=== PATIENT | female | born 1960 | race Caucasian/White ===

== ENCOUNTER → 2022-06-10 | Outpatient (CLI) | payer OTHER, SELFPAY ==
--- NOTE | 2022-06-10 08:00 | CT_ITS ---
STUDY: LOW DOSE CT LUNG CANCER SCREENING REASON FOR EXAM: Female, 61 years old. The patient smoked 1 pack per day for 40 years. History of right breast cancer with mastectomy. Breast implant RADIATION DOSAGE (If Supplied By Facility): CTDIvol = ( 3.02 ) mGy, DLP = ( 99.30 ) mGycm TECHNIQUE: No contrast was administered. Low dose technique was utilized (average mAS-38 and kVp 120). 1.25 mm axial source images with a slice interval of 1.25-mm were reconstructed in lung windows. 2.5 mm axial source images with a slice interval of 2.5-mm were reconstructed in lung windows. 5.0 mm axial source images with a slice interval of 5.0-mm were reconstructed in soft tissue windows. COMPARISON: None. NODULES: No suspicious nodular densities are seen. Emphysema: Hyperinflation. Mild degree of emphysematous changes. Endobronchial lesion: None Aorta: Atherosclerotic plaque formation of the aortic arch. CORONARY ARTERIES: Coronary artery calcification is seen. Heart: Unremarkable Pulmonary artery: Unremarkable Mediastinal nodes: Small benign-appearing mediastinal lymph nodes. Other chest and abdominal findings: Prior right mastectomy and right breast prosthesis. Surgical clips are seen in the right axillary region. CT/Low Dose CT Lung Screening IMPRESSION: Lung-RADS category 2 - Continue annual screening with LDCT in 12 months. IMPORTANT NOTES FOR USE: ACR Lung-RADS Version 1.1 Assessment Categories Release Date: 2018 Category: Coded 0-4 bases on nodule(s) with highest degree of suspicion. Negative screen is defined as categories 1 and 2; a positive screen is defined as categories 3 and 4. Category 3 and 4A nodules that are unchanged on interval CT should be coded as category 2, and individuals returned to screening in 12 months. Category 4X: Category 3 or 4 nodules with additional imaging findings that increase the suspicion of lung cancer, such as spiculation, GGN that doubles in size in 1 year, enlarged lymph notes, etc. Category Modifiers: S (significant finding unrelated to lung cancer) Electronically Signed: Norris Cristina MD at 11:02 EST ,
== END | disposition home or self-care (01) ==
LOC: CT 07:59
PROVIDERS: PCP Family Medicine; Visit Provider Physician Assistant
DX: Z12.2 Encounter for screening for malignant neoplasm of respiratory organs (principal); F17.200 Nicotine dependence, unspecified, uncomplicated
CPT/HCPCS: 71271

== ENCOUNTER → 2023-07-12 | Outpatient (CLI) | payer OTHER, SELFPAY ==
--- NOTE | 2023-07-12 07:53 | CT_ITS ---
INDICATION: Personal history of nicotine dependence EXAMINATION: CT Low Dose CT Chest for Lung Cancer Screening TECHNIQUE: Helically acquired images were obtained of the chest with sagittal and coronal reconstructed images. Individualized dose optimization techniques were used for this CT. COMPARISON: 06/10/2022 CT. FINDINGS: LUNGS, PLEURA AND LARGE AIRWAYS: No consolidation or edema. Stable 4 mm right upper lobe pulmonary nodule image #64 of series #2. Newly visualized 5 mm right upper lobe groundglass pulmonary nodule image #89 of series #2. Newly visualized 6 mm groundglass nodule in the right upper lobe image #107 of series #2. No pleural effusion. No pneumothorax. Centrilobular emphysematous changes of the lungs. THYROID: Unremarkable. HEART AND PERICARDIUM: Coronary artery calcifications are present. No pericardial effusion. MEDIASTINUM AND VAZQUEZ: No mediastinal or hilar adenopathy. Esophagus is unremarkable. No hiatal hernia. VESSELS: No thoracic aortic aneurysm. UPPER ABDOMEN: The visualized upper abdomen is unremarkable. BONES: No acute abnormality. Stable right breast implant rupture with globular densities medial to the breast implant. CT/Low Dose CT Lung Screening IMPRESSION: Stable 4 mm right upper lobe pulmonary nodule and newly visualized 5 mm and 6 mm groundglass right upper lobe pulmonary nodules. Lung-RADS Category 2 (benign appearance or behavior, <1% chance of malignancy) with recommendation to continue annual screening with low-dose CT. Electronically Signed: Wes Laboy DO at 6:04 EST ,
--- OUTSIDE RECORDS SUMMARY | 2023-07-12 08:14 | XMS RPT_ITS | CCD ---
Author Name Unknown Address [address] [place] [address] Organization [facility] Care Team Providers Care [employer] Superintendent Name Role Phone Shan Yoon MD Primary Care Provider MAGDA EAST Referring Unavailable SHAN YOON Primary Care Unavailable SHAN YOON Primary Care Unavailable CHELO WILKERSON Referring Unavailable CHELO WILKERSON Referring Unavailable SHAN YOON Primary Care Unavailable Shan Yoon MD Primary Care Provider SHAN YOON Primary Care Unavailable MAGDA EAST Attending Unavailable SHAN YOON Primary Care Unavailable HEIDI LUCIANO Attending Unavailable CHELO WILKERSON Referring Unavailable HEIDI LUCIANO Attending Unavailable SHAN YOON Primary Care Unavailable SHAN YOON Primary Care Unavailable Medications Completed/Discontinued Medications Medication Drug Class(es) Dates Sig (Normalized) Sig (Original) ferrous sulfate 325 mg oral tablet (17 sources) Start: 04-25-2007 FERROUS SULFATE 325 MG (65 MG ELEMENTAL IRON) TAB Take one(1) tablet twice daily. 0 04/25/2007 Active Problems Active Problems Problem Classification Problem Date Documented Date Episodic/Chronic Other connective tissue disease (3 sources) Pain of left hand; Translations: [Pain in left hand] Episodic Other injuries and conditions due to external causes (2 sources) Osteoarthritis of wrist; Translations: [Other specified injuries of left wrist, hand and finger(s), initial encounter] Episodic Other non-traumatic joint disorders (3 sources) Pain of left wrist; Translations: [Pain in left wrist] Episodic Substance-related disorders (20 sources) Smoker; Translations: [Nicotine dependence, unspecified, uncomplicated] Onset: 10-08-2018 10-08-2018 Chronic Thyroid disorders (20 sources) Acquired hypothyroidism; Translations: [Hypothyroidism, unspecified] Onset: 01-16-2015 01-16-2015 Chronic Past or Other Problems Problem Classification Problem Date Documented Da te Episodic/Chronic Cancer of breast (18 sources) History of malignant neoplasm of breast; Translations: [Personal history of malignant neoplasm of breast] Onset: 09-11-2014 05-03-2021 Episodic Deficiency and other anemia (20 sources) Iron deficiency anemia; Translations: [Iron deficiency anemia, unspecified] Onset: 09-11-2014 09-11-2014 Episodic Deficiency and other anemia (17 sources) Anemia; Translations: [Anemia, unspecified] Onset: 10-08-2018 10-08-2018 Episodic Deficiency and other anemia (1 source) Other iron deficiency anemias; Translations: [Other iron deficiency anemia] Onset: 10-08-2018 Episodic E Codes: Fall (6 sources) Fall; Translations: [Unspecified fall, initial encounter] Onset: 08-15-2022 Episodic Other connective tissue disease (2 sources) Pain in left hand; Translations: [Left hand pain] Onset: 08-15-2022 Episodic Other non-traumatic joint disorders (2 sources) Pain in left wrist; Translations: [Left wrist pain] Onset: 08-15-2022 Episodic Other screening for suspected conditions (not mental disorders or infectious disease) (20 sources) Patient encounter status; Translations: [Encounter for screening mammogram for malignant neoplasm of breast] Onset: 10-08-2018 Episodic Results Test Name Value Interpretation Reference Range Facil ity Vital Signs Date Time Vital Sign Value Performing Clinician Faci lity 06-19-2023 08:02-0500 Body height 159 cm Magda East PA-C Work Phone: [facility] 06-19-2023 08:02-0500 Body temperature 97 [degF] Magda East PA-C Work Phone: [facility] 06-19-2023 08:02-0500 Body weight 78.02 kg Magda East PA-C Work Phone: [facility] 06-19-2023 08:02-0500 Diastolic blood pressure 80 mm[Hg] Magda East PA-C Work Phone: [facility] 06-19-2023 08:02-0500 Heart rate 88 /min Magda East PA-C Work Phone: [facility] 06-19-2023 08:02-0500 Respiratory rate 18 /min Magda East PA-C Work Phone: [facility] 06-19-2023 08:02-0500 Systolic blood pressure 110 mm[Hg] Magda East PA-C Work Phone: [facility] 08-16-2022 10:47-0400 Body height 165.1 cm Heidi Musai PA-C Work Phone: [facility] 08-16-2022 10:47-0400 Body weight 78.47 kg Heidi Bejaranootti PA-C Work Phone: [facility] 08-15-2022 10:38-0400 Body temperature 97.81 [degF] Chelo Wilkerson SYSTEMS QA ANALYST.BALLISTIC EXPERT Work Phone: [facility] 08-15-2022 10:38-0400 Body weight 78.47 kg Chelo Wilkerson SYSTEMS QA ANALYST.BALLISTIC EXPERT Work Phone: [facility] 08-15-2022 10:38-0400 Diastolic blood pressure 78 mm[Hg] Chelo Wilkerson SYSTEMS QA ANALYST.BALLISTIC EXPERT Work Phone: [facility] 08-15-2022 10:38-0400 Heart rate 85 /min Chelo Wilkerson SYSTEMS QA ANALYST.BALLISTIC EXPERT Work Phone: [facility] 08-15-2022 10:38-0400 Respiratory rate 18 /min Chelo Wilkerson SYSTEMS QA ANALYST.BALLISTIC EXPERT Work Phone: [facility] 08-15-2022 10:38-0400 SaO2% (BldA) [Mass fraction] 98 % Chelo Wilkerson SYSTEMS QA ANALYST.BALLISTIC EXPERT Work Phone: [facility] 08-15-2022 10:38-0400 Systolic blood pressure 126 mm[Hg] Chelo Wilkerson SYSTEMS QA ANALYST.BALLISTIC EXPERT Work Phone: [facility] 06-03-2022 13:15-0500 Body weight 79.29 kg Magda East PA-C Work Phone: [facility] 06-03-2022 13:15-0500 Diastolic blood pressure 80 mm[Hg] Magda East PA-C Work Phone: [facility] 06-03-2022 13:15-0500 Heart rate 80 /min Magda East PA-C Work Phone: [facility] 06-03-2022 13:15-0500 Respiratory rate 16 /min Magda East PA-C Work Phone: [facility] 06-03-2022 13:15-0500 SaO2% (BldA) [Mass fraction] 96 % Magda East PA-C Work Phone: [facility] 06-03-2022 13:15-0500 Systolic blood pressure 120 mm[Hg] Magda East PA-C Work Phone: [facility] Encounters Encounter Date Encounter Type Care Provider Facility Start: 06-19-2023 Telephone encounter Basim dyer MD Work Phone: Hematology/Oncology Procedures Date Procedure Procedure Detail Performing Clinician Start: 08-15-2022 Radex hand minimum 3 views Chelo Wilkerson SYSTEMS QA ANALYST.BALLISTIC EXPERT Work Phone: Start: 06-10-2022 Mammography Sweta johnston SYSTEMS QA ANALYST.BALLISTIC EXPERT Work Phone: Start: 05-17-2022 Lipid 1996 panel - S kenia or Plasma Shan Yoon MD Work Phone: Start: 10-16-2018 Mammography Shan erickson MD Work Phone: Start: 08-08-2017 Colonoscopy Shan erickson MD Work Phone: Plan of Treatment Date Care Activity Detail Author Start: 08-09-2027 Urine microalbumin profile [facility] Start: 05-17-2027 Lipid panel Lipid Screening [facility] Start: 05-17-2027 LIPID SCREEN LIPID SCREEN [facility] Start: 10-01-2025 LIPID SCREEN LIPID SCREEN [facility] Start: 05-17-2025 DIABETES SCREEN DIABETES SCREEN [facility] Start: 05-17-2025 Diabetes Screening Diabetes Screenin g [facility] Start: 06-19-2024 Annual PCP Team [employer] Machine Offbearer adeline Disease Visit Annual PCP Team Chronic Disease Visit [facility] Start: 06-19-2024 Covid-19 Vaccine ( season) Covid-19 Vaccine ( season) [facility] Immunizations Immunization Date Immunization Notes Care Provider Fa elliott 03-27-2018 influenza virus vacc ine, unspecified formulation Shan Yoon MD Work Phone: [facility] 08-08-2017 tetanus toxoid, redu christoph diphtheria toxoid, and acellular pertussis vaccine, adsorbed Shan Yoon MD Work Phone: [facility] Payers Date Payer Category Payer Unknown MMO MMO [employer] [id number] 2018-Present [phone] [address] [place] [address] PPO [id number] 2018 Unknown [id number] 2018 Unknown [id number] Social History Date Type Detail Facility Start: 07-01-2019 End: 06-03-2022 Tobacco smoking status PAIS Smokes tobacco daily [facility] History of tobacco use Cigarette Smoker [facility] Start: 04-15-2021 End: 06-19-2023 Alcohol intake Current non-drinker of alcohol (finding) [facility] Start: 07-01-2019 End: 06-03-2022 Tobacco Comment up to 1 ppd at times. [facility] Start: 1960 Sex Assigned At Not on file [facility] Start: 07-01-2019 End: 04-12-2020 Cigarettes smoked current (pack per day) - Reported 0.3 [facility] Work Phone: Start: 07-01-2019 End: 06-03-2022 Tobacco use and exposure Smokeless tobacco non-user [facility] Work Phone: Start: 04-12-2020 End: 09-09-2022 Tobacco use panel [facility] Work Phone: Adult Depression Screening Assessment 0 [facility] Work Phone: Clinical Notes 05-25-2007 to 06-20-2023 Telephone Encounter - Megha Joel LPN - 06/20/2023 2:50 PM ESTTelephone Encounter - Chuy Garza LPN - 06/20/2023 2:30 PM ESTTelephone Encounter - Carmita Wilkerson - 06/19/2023 2:25 PM EST Note Date & Type Note Facility 06-20-2023 Miscellaneous Notes If you read Dr. Beny Martin's note dated 05/25/2007, and Dr. Myers 04/25/2007 notes and it will give us some clue as to past breast history since pt. Really can't remember any of the information. Does this give us enough info to initiate scheduling. Megha Joel LPN Patient reports that she was at [facility] which is no longer there. Patient reports that doctor who saw her went back to [facility] and there for [facility] was closed. Patient states that she had chemotherapy for a year but did not have any radiation. Left message of Magda's message on pt's vm. Chuy Garza LPN Noted. Let her know I will still forward the information to oncology. I know she had concerns, so if she changes her mind, please let me know. Patient calls back and states that she does not want to go through this hassle and states to just forget about it. Patient reports that she was at [facility] which is no longer there. Patient reports that doctor who saw her went back to [place] and there for [facility] was closed. Patient states that she had chemotherapy for a year but did not have any radiation. Jessica Spence, RN Left message for pt to contact office. See questions below. Chuy Garza LPN Please see note from oncologist. See if patient can answer these questions the best she can. Thanks. Magda East PA-C Just need to know a few basic things. When did she have breast cancer? Who was the surgeon? Perhaps we can get records from him or her. At what hospital was a surgery done? Perhaps we could get the pathology report from that hospital. Did she have radiation? If so maybe we can get records from the radiation oncologist. Was she treated with a lumpectomy or mastectomy? Did she receive chemotherapy? Dr. Farris Neris, Did you already reach out to patient to see where she saw Oncology prior or would you like our team to? HX: breast cancer - ICD9: V10.3, ICD10: Z85.3 Patient would like to just discuss her hx with oncology and make sure nothing more is needed. - CONSULT TO HEMATOLOGY/ONCOLOGY Other iron deficiency anemia - ICD9: 280.8, ICD10: D50.8 - CBC + DIFF - COMP METABOLIC PANEL - IRON + TIBC - CONSULT TO HEMATOLOGY/ONCOLOGY We will need previous oncology records to be able to discuss patient's h/o breast cancer. Records must be received prior to scheduling. Neris Miles LPN Patient needs to see hematology/oncology: DX: HX of breast cancer/ Anemia Insurance: MMO [employer] Referred by: PATTI Savage Please review and advise documented in this encounter [facility] 06-19-2023 Miscellaneous Notes Addended by: AILYN COHEN on: 06/19/2023 02:42 PM Modules accepted: Orders documented in this encounter [facility] 06-19-2023 Note HNO ID: [id number] Author: MAGDA EAST PA-C Service: ? Author Type: Physician Auditor Internal Type: Progress Notes Filed: 06/19/2023 10:09 Note Text: Chief Complaint Patient presents with: Yearly Exam HPI Linda Linares is a 62 year old female who presents here today for physical. Patient with hx of anemia, hypothyroid, smoker and past hx of breast cancer. Patient denies concerns today but has been worried about cancer risk. Past medical history, appointments, medications, allergies reviewed. Previous Medical History PAST MEDICAL HISTORY Diagnosis Date Acquired hypothyroidism 01/16/2015 Benign neoplasm of breast 1998 right breast HX: breast cancer 09/11/2014 Right side Iron deficiency anemia 09/11/2014 Postmastectomy lymphedema syndrome Smoker 10/08/2018 Started at the age of 21 up to 1 PPD VENTRAL HERNIA, RECURRENT W/O GANGRENE/OBSTRUCTION 05/25/2007 Previous Surgical History PAST SURGICAL HISTORY Procedure Laterality Date BREAST PROSTHESIS, NOS right breast DELIVERY ONLY , low cervical IMPLANT MESH OPN HERNIA RPR/DEBRIDEMENT CLOSURE 10/06/08 MASTECTOMY 1998 right breast RMVL SHER CTR VAD W/SUBQ PORT/FIBER ANALYST CTR/PRPH INSJ 10/06/08 RPR 1ST INCAL/VNT HERNIA INCARCERATED 10/06/08 Family History FAMILY HISTORY Problem Relation Age of Onset Diabetes Mother Stroke Father TIA Cancer Maternal Grandmother liver cancer Diabetes Maternal Grandmother Diabetes Other niece 5 yo Patient Allergies ALLERGIES No Known Allergies Current Medications Current Outpatient Medications on File Prior to Visit Medication Sig FERROUS SULFATE 325 MG (65 MG ELEMENTAL IRON) TAB Take one(1) tablet twice daily. No current facility-administered medications on file prior to visit. Social History Social History Tobacco Use Smoking status: Every Day Packs/day: 1.00 Years: 20.00 Additional pack years: 0.00 Total pack years: 20.00 Types: Cigarettes Smokeless tobacco: Never Tobacco comments: up to 1 ppd at times. Vaping Use Vaping Use: Never used Substance Use Topics Alcohol use: No Drug use: No Review of Symptoms REVIEW OF SYSTEMS GENERAL: No weight loss, malaise or fevers HEENT: Negative for frequent or significant headaches, No changes in hearing or vision, no nose bleeds or other nasal problems NECK: Negative for lumps, goiter, pain and significant neck swelling RESPIRATORY: Negative for cough, hemoptysis, wheezing, COPD, dyspnea or shortness of breath CARDIOVASCULAR: Negative for chest pain, leg swelling, hypertension, CHF or palpitations GI: No nausea, vomiting, or diarrhea : No history of dysuria, frequency or incontinence MUSCULOSKELETAL: Negative for joint pain or swelling, back pain or muscle pain SKIN: Negative for lesions, rash, and itching PSYCH: Negative for sleep disturbance, mood disorder and recent psychosocial stressors HEMATOLOGY/LYMPHOLOGY: Negative for prolonged bleeding, bruising easily or swollen nodes ENDOCRINE: Negative for cold or heat intolerance, polyuria, polydipsia and goiter NEURO: No history of headaches, syncope, paralysis, seizures or tremors EXAM: BP 110/80 (BP Site: Left Arm, BP Position: Sitting, BP Cuff Size: Large Adult) Pulse 88 Temp 36.1 ?C (97 ?F) Resp 18 Ht 159 cm (5' 2.6 ) Wt 78 kg (172 lb) LMP 01/06/2007 BMI 30.86 kg/m? General Appearance: Well appearing, alert, in no acute distress, well-hydrated, well nourished.. Skin: Skin color, texture, turgor normal, no suspicious rashes or lesions. Head: Normocephalic, no masses, lesions, tenderness or abnormalities. Eyes: Anicteric sclera. Pupils are equally round and reactive to light. Extraocular movements are intact. . Ears: External ears normal, canals clear, TMs pearly patterson. Nose/Sinuses: Nares normal, septum midline, mucosa normal, no drainage or sinus tenderness. Oropharynx: Lips, mucosa, and tongue normal, teeth and gums normal, oropharynx normal. Neck: Supple, no adenopathy; thyroid symmetric, normal size, no bruits. Lungs: Lungs clear to auscultation. No wheezing, rhonchi, rales.. Heart: RRR without murmur, gallop, or rubs. No ectopy. Abdomen: Normal abdominal exam, Abdomen soft, non-tender. Bowel sounds normal. No masses, organomegaly. Extremities: No deformities, edema, skin discoloration, clubbing or cyanosis. Good capillary refill. . Peripheral Pulses: Normal. Neurologic: Gait normal. Reflexes normal and symmetric. Sensation grossly intact.. Health Maintenance List Colorectal Cancer Screening due on 08/08/2018 Pap Testing due on 09/26/2019 HPV Testing due on 09/26/2019 RSV Vaccine(1 - 1-dose 60+ series) Never done Mammogram Screening due on 06/10/2023 Lung Cancer Screening due on 06/10/2023 Influenza Vaccine(1) due on 11/05/2023 Depression Assessment due on 05/07/2024 Shingrix Vaccine(1 of 2) due on 06/19/2024 Covid-19 Vaccine( season) due on 06/19/2024 Pne (more content not included)... [facility] 06-19-2023 History of Presen t illness Narrative Chief Complaint Patient presents with: Yearly Exam HPI Linda Linares is a 62 year old female who presents here today for physical. Patient with hx of anemia, hypothyroid, smoker and past hx of breast cancer. Patient denies concerns today but has been worried about cancer risk. Past medical history, appointments, medications, allergies reviewed. Previous Medical History PAST MEDICAL HISTORY Diagnosis Date Acquired hypothyroidism 01/16/2015 Benign neoplasm of breast 1998 right breast HX: breast cancer 09/11/2014 Right side Iron deficiency anemia 09/11/2014 Postmastectomy lymphedema syndrome Smoker 10/08/2018 Started at the age of 21 up to 1 PPD VENTRAL HERNIA, RECURRENT W/O GANGRENE/OBSTRUCTION 05/25/2007 Previous Surgical History PAST SURGICAL HISTORY Procedure Laterality Date BREAST PROSTHESIS, NOS right breast DELIVERY ONLY , low cervical IMPLANT MESH OPN HERNIA RPR/DEBRIDEMENT CLOSURE 10/06/08 MASTECTOMY 1998 right breast RMVL SHER CTR VAD W/SUBQ PORT/FIBER ANALYST CTR/PRPH INSJ 10/06/08 RPR 1ST INCAL/VNT HERNIA INCARCERATED 10/06/08 Family History FAMILY HISTORY Problem Relation Age of Onset Diabetes Mother Stroke Father TIA Cancer Maternal Grandmother liver cancer Diabetes Maternal Grandmother Diabetes Other niece 5 yo Patient Allergies ALLERGIES No Known Allergies Current Medications Current Outpatient Medications on File Prior to Visit Medication Sig FERROUS SULFATE 325 MG (65 MG ELEMENTAL IRON) TAB Take one(1) tablet twice daily. No current facility-administered medications on file prior to visit. Social History Social History Tobacco Use Smoking status: Every Day Packs/day: 1.00 Years: 20.00 Additional pack years: 0.00 Total pack years: 20.00 Types: Cigarettes Smokeless tobacco: Never Tobacco comments: up to 1 ppd at times. Vaping Use Vaping Use: Never used Substance Use Topics Alcohol use: No Drug use: No Review of Symptoms REVIEW OF SYSTEMS GENERAL: No weight loss, malaise or fevers HEENT: Negative for frequent or significant headaches, No changes in hearing or vision, no nose bleeds or other nasal problems NECK: Negative for lumps, goiter, pain and significant neck swelling RESPIRATORY: Negative for cough, hemoptysis, wheezing, COPD, dyspnea or shortness of breath CARDIOVASCULAR: Negative for chest pain, leg swelling, hypertension, CHF or palpitations GI: No nausea, vomiting, or diarrhea : No history of dysuria, frequency or incontinence MUSCULOSKELETAL: Negative for joint pain or swelling, back pain or muscle pain SKIN: Negative for lesions, rash, and itching PSYCH: Negative for sleep disturbance, mood disorder and recent psychosocial stressors HEMATOLOGY/LYMPHOLOGY: Negative for prolonged bleeding, bruising easily or swollen nodes ENDOCRINE: Negative for cold or heat intolerance, polyuria, polydipsia and goiter NEURO: No history of headaches, syncope, paralysis, seizures or tremors EXAM: BP 110/80 (BP Site: Left Arm, BP Position: Sitting, BP Cuff Size: Large Adult) Pulse 88 Temp 36.1 C (97 F) Resp 18 Ht 159 cm (5' 2.6 ) Wt 78 kg (172 lb) LMP 01/06/2007 BMI 30.86 kg/m General Appearance: Well appearing, alert, in no acute distress, well-hydrated, well nourished.. Skin: Skin color, texture, turgor normal, no suspicious rashes or lesions. Head: Normocephalic, no masses, lesions, tenderness or abnormalities. Eyes: Anicteric sclera. Pupils are equally round and reactive to light. Extraocular movements are intact. . Ears: External ears normal, canals clear, TMs pearly patterson. Nose/Sinuses: Nares normal, septum midline, mucosa normal, no drainage or sinus tenderness. Oropharynx: Lips, mucosa, and tongue normal, teeth and gums normal, oropharynx normal. Neck: Supple, no adenopathy; thyroid symmetric, normal size, no bruits. Lungs: Lungs clear to auscultation. No wheezing, rhonchi, rales.. Heart: RRR without murmur, gallop, or rubs. No ectopy. Abdomen: Normal abdominal exam, Abdomen soft, non-tender. Bowel sounds normal. No masses, organomegaly. Extremities: No deformities, edema, skin discoloration, clubbing or cyanosis. Good capillary refill. . Peripheral Pulses: Normal. Neurologic: Gait normal. Reflexes normal and symmetric. Sensation grossly intact.. Health Maintenance List Colorectal Cancer Screening due on 08/08/2018 Pap Testing due on 09/26/2019 HPV Testing due on 09/26/2019 RSV Vaccine(1 - 1-dose 60+ series) Never done Mammogram Screening due on 06/10/2023 Lung Cancer Screening due on 06/10/2023 Influenza Vaccine(1) due on 11/05/2023 Depression Assessment due on 05/07/2024 Shingrix Vaccine(1 of 2) due on 06/19/2024 Covid-19 Vaccine(3 - 2022-24 season) due on 06/19/2024 Pneumococcal Vaccine(1 of 2 - PCV) due on 06/19/2024 Annual PCP Team Chronic Disease Visit due on 06/19/2024 Diabetes Screening due on 05/17/2025 Lipid Screening due on 05/17/2027 DTaP,Tdap,Td Vaccine(2 - Td or Tdap) due on 08/09/2027 Hepatitis C Screening Completed HIV Screening Discontinued Data reviewed ASSESSMENT/PLAN: 1. Well adult exam - ICD9: V70.0, ICD10: Z00.00 (primary diagnosis) - Counseled on healthy diet and regular exercise - Calcium intake with supplements or by diet of 1000 mg/day for under 50, 9884-5098 mg/day for 50+ - Colorectal cancer screening recommended - agrees to Cologuard - Mammogram ordered - exam recommended once yearly - Lung cancer screening recommended- order sent to [facility] - Smoking cessation encouraged; discussed risks to health and quitting strategies. Patient is contemplative - Follow up for annual exam in one year - patient will consider Pap/pelvic exam with psychopaedic nurse. - COMP METABOLIC PANEL 2. Acquired hypothyroidism - ICD9: 244.9, ICD10: E03.9 - Instructed patient on importance of taking on an empty stomach either first thing in the morning or at bedtime. - LEVOTHYROXINE 200 MCG TABLET - TSH BLD 3. Smoker - ICD9: 305.1, ICD10: F17.200 - Cessation encouraged. - Physiologic and physical aspects of tobacco addiction as well as strategies for quitting were discussed. - Counseling was given focusing on the harmful effects of this addiction especially given the patient's medical condition(s) which will be worsened because of the chemicals in tobacco. - CBC + DIFF - COMP METABOLIC PANEL 4. Other iron deficiency anemia - ICD9: 280.8, ICD10: D50.8 - CBC + DIFF - COMP METABOLIC PANEL - IRON + TIBC - CONSULT TO HEMATOLOGY/ONCOLOGY 5. Screening for colon cancer - ICD9: V76.51, ICD10: Z12.11 - COLOGUARD 6. Encounter for screening for diabetes mellitus - ICD9: V77.1, ICD10: Z13.1 - HGB A1C - COMP METABOLIC PANEL 7. Encounter for lipid screening for cardiovascular disease - ICD9: V77.91, V81.2, ICD10: Z13.220, Z13.6 - LIPID PANEL, NONFASTING 8. HX: breast cancer - ICD9: V10.3, ICD10: Z85.3 Patient would like to just discuss her hx with oncology and make sure nothing more is needed. - CONSULT TO HEMATOLOGY/ONCOLOGY 9. Encounter for screening mammogram for breast cancer - ICD9: V76.12, ICD10: Z12.31 - QUENTIN SCREENING Magda East PA-C documented in this encounter [facility] 06-14-2023 Miscellaneous Notes Spoke with pt and advised of need to reschedule appointment. Pt advises she will call back this afternoon to reschedule her physical appointment as she is currently on a bus. Advised her to ask to speak with a Triage Nurse. Chuy Garza LPN Patients appointment in may was cancelled but did not get rescheduled. Needs to be rescheduled. Only 1 refill sent. Magda East PA-C Per below: Patient has only 1 pill left. ELLIOT 06/03/22 NOV pt to f/u yearly Chuy Garza LPN Patient has been identified by name and date of : Patient phones for refill(s): Requested Prescriptions Pending Prescriptions Disp Refills levothyroxine (SYNTHROID) 200 mcg tablet 90 tablet 4 Sig: Take 1 tablet by mouth once daily. Take on an empty stomach, for thyroid. Date of last office visit in primary care: 06/03/2022 Date of next office visit in primary care: Visit date not found Patient has only 1 pill left. Please advise. Thank you. Ivanna Milnre. documented in this encounter [facility] 09-09-2022 Note HNO ID: [id number] Author: Heidi Luciano PA-C Service: ? Author Type: Physician Auditor Internal Type: Progress Notes Filed: 09/09/2022 2:36 PM Note Text: Heidi Luciano PA-C Established Patient Department of Orthopaedics Orthopaedics [address] [place] [id number] Dept: [phone] September 09, 2022 SUBJECTIVE: CHIEF COMPLAINT: Follow Up of the Left Wrist HPI: Ms. Linda Linares is a 61 year old female. She was last seen in the office on 08/16/2022 for left wrist pain that has been present for 3 days. She is here today for follow up. Today she rates her pain a 4 on a scale of 0 to 10 at rest. She continues to take ibuprofen only as needed. She has discontinued her brace except for any activity that involves repetitive motion or heavy lifting. She states that overall her pain has been improving. She does get some intermittent numbness and tingling in her fourth and fifth digits when her wrist is bothering her more. She denies any recent injury or the onset of new or worsening symptoms. Past Medical History: PAST MEDICAL HISTORY Diagnosis Date Acquired hypothyroidism 01/16/2015 Benign neoplasm of breast 1998 right breast HX: breast cancer 09/11/2014 Right side Iron deficiency anemia 09/11/2014 Postmastectomy lymphedema syndrome Smoker 10/08/2018 Started at the age of 21 up to 1 PPD VENTRAL HERNIA, RECURRENT W/O GANGRENE/OBSTRUCTION 05/25/2007 Past Surgical History: PAST SURGICAL HISTORY Procedure Laterality Date BREAST PROSTHESIS, NOS right breast DELIVERY ONLY , low cervical IMPLANT MESH OPN HERNIA RPR/DEBRIDEMENT CLOSURE 10/06/08 MASTECTOMY 1998 right breast RMVL SHER CTR VAD W/SUBQ PORT/FIBER ANALYST CTR/PRPH INSJ 10/06/08 RPR 1ST INCAL/VNT HERNIA INCARCERATED 10/06/08 Family History: FAMILY HISTORY Problem Relation Age of Onset Diabetes Mother Stroke Father TIA Cancer Maternal Grandmother liver cancer Diabetes Maternal Grandmother Diabetes Other niece 5 yo Social History: Social History Tobacco Use Smoking status: Every Day Packs/day: 1.00 Years: 20.00 Pack years: 20.00 Types: Cigarettes Smokeless tobacco: Never Tobacco comments: up to 1 ppd at times. Vaping Use Vaping Use: Never used Substance Use Topics Alcohol use: No Drug use: No Medications: Current Outpatient Medications Medication Sig levothyroxine (SYNTHROID) 200 mcg tablet Take 1 tablet by mouth once daily. Take on an empty stomach, for thyroid. FERROUS SULFATE 325 MG (65 MG ELEMENTAL IRON) TAB Take one(1) tablet twice daily. No current facility-administered medications for this visit. Allergies: Patient has no known allergies. ROS: General: negative for fatigue, malaise, weight loss/gain Musculoskeletal: see HPI Psych: no depression, anxiety OBJECTIVE: Ms. Linda Linares is a pleasant 61 year old in no apparent distress. Gen:LMP 01/06/2007 nl development, non obese, no deformities ENT: Normocephalic, normal hearing, moist mucosa CV: Pulses:Radial= 2+ and symmetric, capillary refill < 2 secs, no peripheral edema/varicosities Skin: no rash, bruising or lesions. Good turgor. Psych: cooperative and appropriate, alert and oriented x 3, good mood and affect. Musculoskeletal: Right Hand Exam Right hand exam is normal. Left Hand Exam Tenderness Left hand tenderness location: TFCC. Range of Motion Wrist Extension: 20 Flexion: 20 Muscle Strength Wrist extension: 4/5 Wrist flexion: 4/5 Silk Washing Machine Operator: 4/5 Tests Rob's test: negative Other Erythema: absent Scars: absent IMAGING: Not indicated ASSESSMENT: S69.82XD Injury of triangular fibrocartilage complex (TFCC) of left wrist, subsequent encounter (primary encounter diagnosis) PLAN: Reviewed images taken previously. Patient given HEP to participate in daily to increase strength and ROM. She will discontinue brace as tolerated and continue to take ibuprofen as needed. Discussed with patient that she will continue to see improvement for the next 1-2 months. Patient agreeable with plan and will follow up as needed if she fails to continue to improve. FOLLOW UP INSTRUCTIONS: As needed Heidi Luciano PA-C [facility] 09-09-2022 History of Presen t illness Narrative Heidi Luciano PA-C Established Patient Department of Orthopaedics Orthopaedics [address] [place] [id number] Dept: [phone] September 09, 2022 SUBJECTIVE: CHIEF COMPLAINT: Follow Up of the Left Wrist HPI: Ms. Linda Linares is a 61 year old female. She was last seen in the office on 08/16/2022 for left wrist pain that has been present for 3 days. She is here today for follow up. Today she rates her pain a 4 on a scale of 0 to 10 at rest. She continues to take ibuprofen only as needed. She has discontinued her brace except for any activity that involves repetitive motion or heavy lifting. She states that overall her pain has been improving. She does get some intermittent numbness and tingling in her fourth and fifth digits when her wrist is bothering her more. She denies any recent injury or the onset of new or worsening symptoms. Past Medical History: PAST MEDICAL HISTORY Diagnosis Date Acquired hypothyroidism 01/16/2015 Benign neoplasm of breast 1998 right breast HX: breast cancer 09/11/2014 Right side Iron deficiency anemia 09/11/2014 Postmastectomy lymphedema syndrome Smoker 10/08/2018 Started at the age of 21 up to 1 PPD VENTRAL HERNIA, RECURRENT W/O GANGRENE/OBSTRUCTION 05/25/2007 Past Surgical History: PAST SURGICAL HISTORY Procedure Laterality Date BREAST PROSTHESIS, NOS right breast DELIVERY ONLY , low cervical IMPLANT MESH OPN HERNIA RPR/DEBRIDEMENT CLOSURE 10/06/08 MASTECTOMY 1998 right breast RMVL SHER CTR VAD W/SUBQ PORT/FIBER ANALYST CTR/PRPH INSJ 10/06/08 RPR 1ST INCAL/VNT HERNIA INCARCERATED 10/06/08 Family History: FAMILY HISTORY Problem Relation Age of Onset Diabetes Mother Stroke Father TIA Cancer Maternal Grandmother liver cancer Diabetes Maternal Grandmother Diabetes Other niece 5 yo Social History: Social History Tobacco Use Smoking status: Every Day Packs/day: 1.00 Years: 20.00 Pack years: 20.00 Types: Cigarettes Smokeless tobacco: Never Tobacco comments: up to 1 ppd at times. Vaping Use Vaping Use: Never used Substance Use Topics Alcohol use: No Drug use: No Medications: Current Outpatient Medications Medication Sig levothyroxine (SYNTHROID) 200 mcg tablet Take 1 tablet by mouth once daily. Take on an empty stomach, for thyroid. FERROUS SULFATE 325 MG (65 MG ELEMENTAL IRON) TAB Take one(1) tablet twice daily. No current facility-administered medications for this visit. Allergies: Patient has no known allergies. ROS: General: negative for fatigue, malaise, weight loss/gain Musculoskeletal: see HPI Psych: no depression, anxiety OBJECTIVE: Ms. Linda Linares is a pleasant 61 year old in no apparent distress. Gen:LMP 01/06/2007 nl development, non obese, no deformities ENT: Normocephalic, normal hearing, moist mucosa CV: Pulses:Radial= 2+ and symmetric, capillary refill < 2 secs, no peripheral edema/varicosities Skin: no rash, bruising or lesions. Good turgor. Psych: cooperative and appropriate, alert and oriented x 3, good mood and affect. Musculoskeletal: Right Hand Exam Right hand exam is normal. Left Hand Exam Tenderness Left hand tenderness location: TFCC. Range of Motion Wrist Extension: 20 Flexion: 20 Muscle Strength Wrist extension: 4/5 Wrist flexion: 4/5 Silk Washing Machine Operator: 4/5 Tests Rob's test: negative Other Erythema: absent Scars: absent IMAGING: Not indicated ASSESSMENT: S69.82XD Injury of triangular fibrocartilage complex (TFCC) of left wrist, subsequent encounter (primary encounter diagnosis) PLAN: Reviewed images taken previously. Patient given HEP to participate in daily to increase strength and ROM. She will discontinue brace as tolerated and continue to take ibuprofen as needed. Discussed with patient that she will continue to see improvement for the next 1-2 months. Patient agreeable with plan and will follow up as needed if she fails to continue to improve. FOLLOW UP INSTRUCTIONS: As needed Heidi Luciano PA-C documented in this encounter [facility] 08-16-2022 Note HNO ID: [id number] Author: Heidi Luciano PA-C Service: ? Author Type: Physician Auditor Internal Type: Progress Notes Filed: 08/16/2022 1:11 PM Note Text: Heidi Luciano PA-C Department of Orthopaedics Orthopaedics [address] [place] [address] Dept: [phone] Dept August 16, 2022 SUBJECTIVE: CHIEF COMPLAINT: New, Pain, and Swelling of the Left Hand HPI: Ms. Linda Linares is a 61 year old [id number] female. She presents today with left wrist pain that been present since she fell while rollerblading 2 days ago. She was seen at an urgent care and given an order for x-rays which she had obtained at [facility] yesterday. She is here today wearing a brace. Today she rates her pain a 0 on a scale of 0-10 at rest. Her pain increases to a 5 out of 10 with activity. She notes that overall her pain has improved since her initial injury. She has been taking ibuprofen as needed at night when she is working third shift. She has been icing and has remained in her brace. She denies any new numbness/tingling or previous hand surgeries. Past Medical History: PAST MEDICAL HISTORY Diagnosis Date Acquired hypothyroidism 01/16/2015 Benign neoplasm of breast 1998 right breast HX: breast cancer 09/11/2014 Right side Iron deficiency anemia 09/11/2014 Postmastectomy lymphedema syndrome Smoker 10/08/2018 Started at the age of 21 up to 1 PPD VENTRAL HERNIA, RECURRENT W/O GANGRENE/OBSTRUCTION 05/25/2007 Past Surgical History: PAST SURGICAL HISTORY Procedure Laterality Date BREAST PROSTHESIS, NOS right breast DELIVERY ONLY , low cervical IMPLANT MESH OPN HERNIA RPR/DEBRIDEMENT CLOSURE 10/06/08 MASTECTOMY 1998 right breast RMVL SHER CTR VAD W/SUBQ PORT/FIBER ANALYST CTR/PRPH INSJ 10/06/08 RPR 1ST INCAL/VNT HERNIA INCARCERATED 10/06/08 Family History: FAMILY HISTORY Problem Relation Age of Onset Diabetes Mother Stroke Father TIA Cancer Maternal Grandmother liver cancer Diabetes Maternal Grandmother Diabetes Other niece 5 yo Social History: Social History Tobacco Use Smoking status: Every Day Packs/day: 1.00 Years: 20.00 Pack years: 20.00 Types: Cigarettes Smokeless tobacco: Never Tobacco comments: up to 1 ppd at times. Vaping Use Vaping Use: Never used Substance Use Topics Alcohol use: No Drug use: No Medications: Current Outpatient Medications Medication Sig levothyroxine (SYNTHROID) 200 mcg tablet Take 1 tablet by mouth once daily. Take on an empty stomach, for thyroid. FERROUS SULFATE 325 MG (65 MG ELEMENTAL IRON) TAB Take one(1) tablet twice daily. No current facility-administered medications for this visit. Allergies: Patient has no known allergies. ROS: General: negative for fatigue, malaise, weight loss/gain Musculoskeletal: see HPI Psych: no depression, anxiety OBJECTIVE: Ms. Linda Linares is a pleasant 61 year old in no apparent distress. Gen:Ht 5' 5 (1.65m) Wt 173 lb (78.5kg) LMP 01/06/2007 BMI 28.79 kg/(m2). nl development, non obese, no deformities ENT: Normocephalic, normal hearing, moist mucosa CV: Pulses:Radial= 2+ and symmetric, capillary refill < 2 secs, no peripheral edema/varicosities Skin: no rash, bruising or lesions. Good turgor. Psych: cooperative and appropriate, alert and oriented x 3, good mood and affect. Musculoskeletal: Right Hand Exam Right hand exam is normal. Left Hand Exam Tenderness Left hand tenderness location: TFCC amd scapholunate, no snuffbox tenderness. Range of Motion Wrist Extension: 20 Flexion: 40 Pronation: 80 Supination: 80 Muscle Strength Wrist extension: 4/5 Wrist flexion: 4/5 Silk Washing Machine Operator: 4/5 Comments: Diffuse swelling over dorsum of hand consistent with recent injury Resolving ecchymosis from previous incident IMAGIN08/15/2022 1:03 PM - Radiology, [facility]ru In Impression IMPRESSION: No acute osseous traumatic abnormality of the left wrist and hand Quiller Tender: PSCB Transcribe Date/Time: Aug 15 2022 12:56P Dictated by : ANGELES MCFARLAND MD This examination was interpreted and the report reviewed and electronically signed by: ANGELES MCFARLAND MD on Aug 15 2022 1:01PM EST Results-Findings * * *Final Report* * * DATE OF EXAM: Aug 15 2022 12:55PM LDX 5272 - XR WRIST 4V PA/LAT/OBL/SCAPH LT / PROCEDURE REASON: multiple diagnoses * * * * Physician Interpretation * * * * XR HAND 3V PA/LAT/OBL LT, XR WRIST 4V PA/LAT/OBL/SCAPH LT HISTORY: 61 years old Clinical information: Fall, initial encounter Left hand pain Fall onto left hand/wrist x one day, pain/swelling hand and wrist. TECHNIQUE: Images: XR HAND 3V PA/LAT/OBL LT, XR WRIST 4V PA/LAT/OBL/SCAPH LT Comparison: None. RESULT: Carpal bones as well as distal radius and ulna in addition metacarpal phalanges are all intact without acute fracture or dislocation. No fractures or dislocations are seen. ASSESSME (more content not included)... [facility] 08-16-2022 History of Presen t illness Narrative Heidi Luciano PA-C Department of Orthopaedics Orthopaedics [address] [place] [id number] Dept: [phone] Dept August 16, 2022 SUBJECTIVE: CHIEF COMPLAINT: New, Pain, and Swelling of the Left Hand HPI: Ms. Linda Linares is a 61 year old [id number] female. She presents today with left wrist pain that been present since she fell while rollerblading 2 days ago. She was seen at an urgent care and given an order for x-rays which she had obtained at [facility] yesterday. She is here today wearing a brace. Today she rates her pain a 0 on a scale of 0-10 at rest. Her pain increases to a 5 out of 10 with activity. She notes that overall her pain has improved since her initial injury. She has been taking ibuprofen as needed at night when she is working third shift. She has been icing and has remained in her brace. She denies any new numbness/tingling or previous hand surgeries. Past Medical History: PAST MEDICAL HISTORY Diagnosis Date Acquired hypothyroidism 01/16/2015 Benign neoplasm of breast 1998 right breast HX: breast cancer 09/11/2014 Right side Iron deficiency anemia 09/11/2014 Postmastectomy lymphedema syndrome Smoker 10/08/2018 Started at the age of 21 up to 1 PPD VENTRAL HERNIA, RECURRENT W/O GANGRENE/OBSTRUCTION 05/25/2007 Past Surgical History: PAST SURGICAL HISTORY Procedure Laterality Date BREAST PROSTHESIS, NOS right breast DELIVERY ONLY , low cervical IMPLANT MESH OPN HERNIA RPR/DEBRIDEMENT CLOSURE 10/06/08 MASTECTOMY 1998 right breast RMVL SHER CTR VAD W/SUBQ PORT/FIBER ANALYST CTR/PRPH INSJ 10/06/08 RPR 1ST INCAL/VNT HERNIA INCARCERATED 10/06/08 Family History: FAMILY HISTORY Problem Relation Age of Onset Diabetes Mother Stroke Father TIA Cancer Maternal Grandmother liver cancer Diabetes Maternal Grandmother Diabetes Other niece 5 yo Social History: Social History Tobacco Use Smoking status: Every Day Packs/day: 1.00 Years: 20.00 Pack years: 20.00 Types: Cigarettes Smokeless tobacco: Never Tobacco comments: up to 1 ppd at times. Vaping Use Vaping Use: Never used Substance Use Topics Alcohol use: No Drug use: No Medications: Current Outpatient Medications Medication Sig levothyroxine (SYNTHROID) 200 mcg tablet Take 1 tablet by mouth once daily. Take on an empty stomach, for thyroid. FERROUS SULFATE 325 MG (65 MG ELEMENTAL IRON) TAB Take one(1) tablet twice daily. No current facility-administered medications for this visit. Allergies: Patient has no known allergies. ROS: General: negative for fatigue, malaise, weight loss/gain Musculoskeletal: see HPI Psych: no depression, anxiety OBJECTIVE: Ms. Linda Linares is a pleasant 61 year old in no apparent distress. Gen:Ht 5' 5 (1.65m) Wt 173 lb (78.5kg) LMP 01/06/2007 BMI 28.79 kg/(m^2). nl development, non obese, no deformities ENT: Normocephalic, normal hearing, moist mucosa CV: Pulses:Radial= 2+ and symmetric, capillary refill < 2 secs, no peripheral edema/varicosities Skin: no rash, bruising or lesions. Good turgor. Psych: cooperative and appropriate, alert and oriented x 3, good mood and affect. Musculoskeletal: Right Hand Exam Right hand exam is normal. Left Hand Exam Tenderness Left hand tenderness location: TFCC amd scapholunate, no snuffbox tenderness. Range of Motion Wrist Extension: 20 Flexion: 40 Pronation: 80 Supination: 80 Muscle Strength Wrist extension: 4/5 Wrist flexion: 4/5 Silk Washing Machine Operator: 4/5 Comments: Diffuse swelling over dorsum of hand consistent with recent injury Resolving ecchymosis from previous incident IMAGIN08/15/2022 1:03 PM - Radiology, Oru In Impression IMPRESSION: No acute osseous traumatic abnormality of the left wrist and hand Quiller Tender: PSCB Transcribe Date/Time: Aug 15 2022 12:56P Dictated by : ANGELES MCFARLAND MD This examination was interpreted and the report reviewed and electronically signed by: ANGELES MCFARLAND MD on Aug 15 2022 1:01PM EST Results-Findings * * *Final Report* * * DATE OF EXAM: Aug 15 2022 12:55PM LDX 5272 - XR WRIST 4V PA/LAT/OBL/SCAPH LT / PROCEDURE REASON: multiple diagnoses * * * * Physician Interpretation * * * * XR HAND 3V PA/LAT/OBL LT, XR WRIST 4V PA/LAT/OBL/SCAPH LT HISTORY: 61 years old Clinical information: Fall, initial encounter Left hand pain Fall onto left hand/wrist x one day, pain/swelling hand and wrist. TECHNIQUE: Images: XR HAND 3V PA/LAT/OBL LT, XR WRIST 4V PA/LAT/OBL/SCAPH LT Comparison: None. RESULT: Carpal bones as well as distal radius and ulna in addition metacarpal phalanges are all intact without acute fracture or dislocation. No fractures or dislocations are seen. ASSESSMENT: S69.82XA TFCC (triangular fibrocartilage complex) injury, left, initial encounter (primary encounter diagnosis) W19.XXXA Fall, initial encounter M79.642 Left hand pain M25.532 Left wrist pain PLAN: Reviewed images taken previously. Recommendation for left wrist sprain is wrist bracing for 2 weeks and then discontinued as tolerated. She will continue to take ibuprofen as needed [id number]. Patient agreeable with plan will follow-up in 3 weeks. If she were to have the onset of any new or worsening symptoms she will contact the office for sooner follow-up. FOLLOW UP INSTRUCTIONS: 3 weeks Heidi Luciano PA-C documented in this encounter [facility] 08-15-2022 Miscellaneous Notes Birthday verified with patient over the phone. Aware of the below information with all questions answered. Negative xrays. Continue same treatment outlined in AVS and follow up with ortho tomorrow for further workup and evaluation. documented in this encounter [facility] 08-15-2022 Note HNO ID: [id number] Author: Chelo Wilkerson APRN.LUCY Service: ? Author Type: Nurse Practitioner Type: Progress Notes Filed: 08/15/2022 11:01 AM Note Text: This note was created using Realtime Worldsriter. Subjective Linda Linares is a 61 year old female. HPI by patient: Linda Linares is a 61 year old presenting to the office with the complaint of left hand wrist pain after falling. CC: (Was roller skating last night and fell. Left hand bruised, swollen and painful) Fell last night while rollerblading. Associated symptoms include swelling and bruising. States she had bruising already on the posterior part for something completely different. Some tingling. Denies previous injury. Went to work last night, works 3rd shift. Hasn't washed her hands after the fall. OTC tylenol at work last night. ALLERGIES No Known Allergies Family History Reviewed Including Cardiac Diseases, Psychiatric Diseases, AND Substance Abuse Problem: Diabetes Relation: Mother Age of Onset: (Not Specified) Problem: Stroke Relation: Father Age of Onset: (Not Specified) Comment: TIA Problem: Cancer Relation: Maternal Grandmother Age of Onset: (Not Specified) Comment: liver cancer Problem: Diabetes Relation: Maternal Grandmother Age of Onset: (Not Specified) Problem: Diabetes Relation: Other Age of Onset: (Not Specified) Comment: niece 5 yo Social History Tobacco Use Smoking status: Every Day Packs/day: 1.00 Years: 20.00 Pack years: 20 Types: Cigarettes Smokeless tobacco: Never Tobacco comments: up to 1 ppd at times. Vaping Use Vaping Use: Never used Alcohol use: No Drug use: No Active Ambulatory Problems HX: breast cancer Date Noted: 09/11/2014 Iron deficiency anemia Date Noted: 09/11/2014 Routine gynecological examination Date Noted: 01/16/2015 Acquired hypothyroidism Date Noted: 01/16/2015 Well adult exam Date Noted: 08/08/2017 Smoker Date Noted: 10/08/2018 Encounter for screening for diabetes mellitus Date Noted: 10/08/2018 Absolute anemia Date Noted: 10/08/2018 Encounter for screening mammogram for breast cancer Date Noted: 10/08/2018 Encounter for gynecological examination Date Noted: 10/02/2020 Resolved Ambulatory Problems VENTRAL HERNIA, RECURRENT W/O GANGRENE/OBSTRUCTION Date Noted: 05/25/2007 Past Medical History: 1999: Benign neoplasm of breast 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 HENT: Negative. Eyes: Negative. Respiratory: Negative. Cardiovascular: Negative. Gastrointestinal: Negative. Endocrine: Negative. Genitourinary: Negative. Musculoskeletal: Positive for joint swelling. Skin: Negative. Neurological: Negative. Hematological: Negative. Objective BP 126/78 Pulse 85 Temp 36.6 ?C (97.8 ?F) (Tympanic) Resp 18 Wt 78.5 kg (173 lb) LMP 01/06/2007 SpO2 98% BMI 30.40 kg/m? Physical Exam Vitals reviewed. Constitutional: General: She is not in acute distress. Appearance: She is not ill-appearing, toxic-appearing or diaphoretic. Cardiovascular: Pulses: Radial pulses are 2+ on the right side and 2+ on the left side. Pulmonary: Effort: Pulmonary effort is normal. Musculoskeletal: Right hand: Normal capillary refill. Left hand: Swelling and bony tenderness present. Decreased range of motion. Normal sensation. Normal capillary refill. Comments: +dirt on fingers, +bruising. Neurological: Mental Status: She is alert. Psychiatric: Behavior: Behavior is cooperative. Assessment and Plan (W19.XXXA) Fall, initial encounter (primary encounter diagnosis) Plan: XR WRIST INJURY 4V PA/LAT/OBL/SCAPH LEFT, XR HAND GENERAL 3V PA/LAT/OBL LEFT, CONSULT TO ORTHOPAEDICS (M79.642) Left hand pain Plan: XR HAND GENERAL 3V PA/LAT/OBL LEFT, CONSULT TO ORTHOPAEDICS (M25.532) Left wrist pain Plan: XR WRIST INJURY 4V PA/LAT/OBL/SCAPH LEFT, CONSULT TO ORTHOPAEDICS -No wrist splints in office. Get OTC wrist splint, keep elevated, ice for 48 hours then rotate ice/heat. Wrapped in Inocencio while in office. -May go to any [facility] outpatient radiology department to have xrays completed. Orders active for 2 weeks and will call with results. -OTC tylenol/ibuprofen as directed on the bottle. -Make follow up with primary care for monitoring and resolution in symptoms. -Signs that warrant an ER evaluation: Sudden change/worsening in condition, lethargy, signs of dehydration, fever greater than 102 F that is not responding to Tylenol or ibuprofen (Motrin, Advil), drooling, difficulty swallowing, difficulty breathing, shortness of breath, chest pain, evidence of airway compromise (tripod position, neck extension, retractions), seizures, changes in mental status, or other concerns. The patient will pursue further outpatient evaluation with the primary care physician or another Urgent Care/Express Care as outlined in the after visit summary. The ba (more content not included)... [facility] 08-15-2022 History of Presen t illness Narrative This note was created using Realtime Worldsriter. Subjective Linda Linares is a 61 year old female. HPI by patient: Linda Linares is a 61 year old presenting to the office with the complaint of left hand wrist pain after falling. CC: (Was roller skating last night and fell. Left hand bruised, swollen and painful) Fell last night while rollerblading. Associated symptoms include swelling and bruising. States she had bruising already on the posterior part for something completely different. Some tingling. Denies previous injury. Went to work last night, works 3rd shift. Hasn't washed her hands after the fall. OTC tylenol at work last night. ALLERGIES No Known Allergies Family History Reviewed Including Cardiac Diseases, Psychiatric Diseases, & Substance Abuse Problem: Diabetes Relation: Mother Age of Onset: (Not Specified) Problem: Stroke Relation: Father Age of Onset: (Not Specified) Comment: TIA Problem: Cancer Relation: Maternal Grandmother Age of Onset: (Not Specified) Comment: liver cancer Problem: Diabetes Relation: Maternal Grandmother Age of Onset: (Not Specified) Problem: Diabetes Relation: Other Age of Onset: (Not Specified) Comment: niece 5 yo Social History Tobacco Use Smoking status: Every Day Packs/day: 1.00 Years: 20.00 Pack years: 20 Types: Cigarettes Smokeless tobacco: Never Tobacco comments: up to 1 ppd at times. Vaping Use Vaping Use: Never used Alcohol use: No Drug use: No Active Ambulatory Problems HX: breast cancer Date Noted: 09/11/2014 Iron deficiency anemia Date Noted: 09/11/2014 Routine gynecological examination Date Noted: 01/16/2015 Acquired hypothyroidism Date Noted: 01/16/2015 Well adult exam Date Noted: 08/08/2017 Smoker Date Noted: 10/08/2018 Encounter for screening for diabetes mellitus Date Noted: 10/08/2018 Absolute anemia Date Noted: 10/08/2018 Encounter for screening mammogram for breast cancer Date Noted: 10/08/2018 Encounter for gynecological examination Date Noted: 10/02/2020 Resolved Ambulatory Problems VENTRAL HERNIA, RECURRENT W/O GANGRENE/OBSTRUCTION Date Noted: 05/25/2007 Past Medical History: 1999: Benign neoplasm of breast 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 HENT: Negative. Eyes: Negative. Respiratory: Negative. Cardiovascular: Negative. Gastrointestinal: Negative. Endocrine: Negative. Genitourinary: Negative. Musculoskeletal: Positive for joint swelling. Skin: Negative. Neurological: Negative. Hematological: Negative. Objective BP 126/78 Pulse 85 Temp 36.6 C (97.8 F) (Tympanic) Resp 18 Wt 78.5 kg (173 lb) LMP 01/06/2007 SpO2 98% BMI 30.40 kg/m Physical Exam Vitals reviewed. Constitutional: General: She is not in acute distress. Appearance: She is not ill-appearing, toxic-appearing or diaphoretic. Cardiovascular: Pulses: Radial pulses are 2+ on the right side and 2+ on the left side. Pulmonary: Effort: Pulmonary effort is normal. Musculoskeletal: Right hand: Normal capillary refill. Left hand: Swelling and bony tenderness present. Decreased range of motion. Normal sensation. Normal capillary refill. Comments: +dirt on fingers, +bruising. Neurological: Mental Status: She is alert. Psychiatric: Behavior: Behavior is cooperative. Assessment and Plan (W19.XXXA) Fall, initial encounter (primary encounter diagnosis) Plan: XR WRIST INJURY 4V PA/LAT/OBL/SCAPH LEFT, XR HAND GENERAL 3V PA/LAT/OBL LEFT, CONSULT TO ORTHOPAEDICS (M79.642) Left hand pain Plan: XR HAND GENERAL 3V PA/LAT/OBL LEFT, CONSULT TO ORTHOPAEDICS (M25.532) Left wrist pain Plan: XR WRIST INJURY 4V PA/LAT/OBL/SCAPH LEFT, CONSULT TO ORTHOPAEDICS -No wrist splints in office. Get OTC wrist splint, keep elevated, ice for 48 hours then rotate ice/heat. Wrapped in Inocencio while in office. -May go to any [facility] outpatient radiology department to have xrays completed. Orders active for 2 weeks and will call with results. -OTC tylenol/ibuprofen as directed on the bottle. -Make follow up with primary care for monitoring and resolution in symptoms. -Signs that warrant an ER evaluation: Sudden change/worsening in condition, lethargy, signs of dehydration, fever greater than 102 F that is not responding to Tylenol or ibuprofen (Motrin, Advil), drooling, difficulty swallowing, difficulty breathing, shortness of breath, chest pain, evidence of airway compromise (tripod position, neck extension, retractions), seizures, changes in mental status, or other concerns. The patient will pursue further outpatient evaluation with the primary care physician or another Urgent Care/Express Care as outlined in the after visit summary. The patient is agreeable to this plan of care and follow-up instructions have been explained in detail. The patient has received these instructions in written format and have expressed an understanding of the after visit summary. Medical Decision Making: Level: 3 - Low I spent a total of 20 minutes on the date of the service which included preparing to see the patient, [id number] patient care, completing clinical documentation, obtaining and/or reviewing separately obtained history, performing a medically appropriate examination, counseling and educating the patient/family/caregiver, and ordering medications, tests, or procedures. documented in this encounter [facility] 08-15-2022 Instructions Chelo Wilkerson APRN.CNP - 08/15/2022 10:34 AM EDT (W19.XXXA) Fall, initial encounter (primary encounter diagnosis) Plan: XR WRIST INJURY 4V PA/LAT/OBL/SCAPH LEFT, XR HAND GENERAL 3V PA/LAT/OBL LEFT, CONSULT TO ORTHOPAEDICS (M79.642) Left hand pain Plan: XR HAND GENERAL 3V PA/LAT/OBL LEFT, CONSULT TO ORTHOPAEDICS (M25.532) Left wrist pain Plan: XR WRIST INJURY 4V PA/LAT/OBL/SCAPH LEFT, CONSULT TO ORTHOPAEDICS -No wrist splints in office. Get OTC wrist splint, keep elevated, ice for 48 hours then rotate ice/heat. -May go to any [facility] outpatient radiology department to have xrays completed. Orders active for 2 weeks and will call with results. -OTC tylenol/ibuprofen as directed on the bottle. -Make follow up with primary care for monitoring and resolution in symptoms. -Signs that warrant an ER evaluation: Sudden change/worsening in condition, lethargy, signs of dehydration, fever greater than 102 F that is not responding to Tylenol or ibuprofen (Motrin, Advil), drooling, difficulty swallowing, difficulty breathing, shortness of breath, chest pain, evidence of airway compromise (tripod position, neck extension, retractions), seizures, changes in mental status, or other concerns. documented in this encounter [facility] 06-13-2022 Miscellaneous Notes Patient notified and voiced understanding. She is ok with results currently. Penny De León MA Lung cancer screening CT was neg. Incidentally noted some plaque build up in arteries. Recommend working on diet to get cholesterol levels down. Her last LDL was 124 which isn't horrible, but recommend getting under 100. If she would like to discuss in more detail, recommend follow up visit. Thanks. Magda East PA-C documented in this encounter [facility] 06-13-2022 Miscellaneous Notes Patient notified and voiced understanding. Penny De León MA Please let patient know that her mammogram is normal. She should continue yearly screening mammograms. documented in this encounter [facility] 06-10-2022 Miscellaneous Notes June 13, 2022 PID: [id number] Linda Linares [address] [place] [address] Dear Ms. Linares, We are pleased to inform you that the results of your recent breast imaging exam on 06/10/2022 are normal. Early detection of cancer is very important. We also understand recommendations regarding breast cancer screening are controversial. Please discuss with your primary care provider which strategy is best for you and whether a mammogram is right for you. Your imaging studies and report will be kept on file at [facility] as part of your permanent medical record and are available for your continuing care. Thank you for allowing us to help in meeting your health care needs. Sincerely, Dr. Peralta Interpreting Radiologist [facility] (Normal over 40) documented in this encounter [facility] 06-03-2022 Instructions Magda East PA-C - 06/03/2022 1:48 PM EST Let me know documented in this encounter [facility] 06-03-2022 History of Presen t illness Narrative Chief Complaint Patient presents with: Follow Up: Medication HPI Linda Linares is a 61 year old female who presents here today for Chronic Medical Conditions.. Patient with hx of hypothyroidism, anemia, smoker and those as below. Patient works 2 jobs. 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 As a result she gets very little sleep and feels fatigued near daily. She also reports past hx of breast cancer but cannot find records. Her hematology left for a different country and her records were sent somewhere but she has not been able to find them. Last 6 Encounter BP Readings: Date: BP: 06/03/2022 120/80 04/15/2021 110/74 10/02/2020 118/74 07/01/2019 116/70 10/08/2018 122/78 03/27/2018 114/72 Past medical history, appointments, medications, allergies reviewed. Previous Medical History PAST MEDICAL HISTORY Diagnosis Date Acquired hypothyroidism 01/16/2015 Benign neoplasm of breast 1998 right breast HX: breast cancer 09/11/2014 Right side Iron deficiency anemia 09/11/2014 Postmastectomy lymphedema syndrome Smoker 10/08/2018 Started at the age of 21 up to 1 PPD VENTRAL HERNIA, RECURRENT W/O GANGRENE/OBSTRUCTION 05/25/2007 Previous Surgical History PAST SURGICAL HISTORY Procedure Laterality Date BREAST PROSTHESIS, NOS right breast DELIVERY ONLY , low cervical IMPLANT MESH OPN HERNIA RPR/DEBRIDEMENT CLOSURE 10/06/08 MASTECTOMY 1998 right breast RMVL SHER CTR VAD W/SUBQ PORT/FIBER ANALYST CTR/PRPH INSJ 10/06/08 RPR 1ST INCAL/VNT HERNIA INCARCERATED 10/06/08 Family History FAMILY HISTORY Problem Relation Age of Onset Diabetes Mother Stroke Father TIA Cancer Maternal Grandmother liver cancer Diabetes Maternal Grandmother Diabetes Other niece 5 yo Patient Allergies ALLERGIES No Known Allergies Current Medications Current Outpatient Medications on File Prior to Visit Medication Sig levothyroxine (SYNTHROID) 200 mcg tablet TAKE 1 TABLET BY MOUTH ONCE DAILY. TAKE ON AN EMPTY STOMACH, FOR THYROID. FERROUS SULFATE 325 MG (65 MG ELEMENTAL IRON) TAB Take one(1) tablet twice daily. No current facility-administered medications on file prior to visit. Social History Social History Tobacco Use Smoking status: Every Day Packs/day: 0.25 Years: 20.00 Pack years: 5.00 Types: Cigarettes Smokeless tobacco: Never Tobacco comments: up to 1 ppd at times. Vaping Use Vaping Use: Never used Substance Use Topics Alcohol use: No Drug use: No Review of Symptoms REVIEW OF SYSTEMS GENERAL: No weight loss, malaise or fevers (see HPI) NECK: Negative for lumps, goiter, pain and significant neck swelling RESPIRATORY: Negative for cough, hemoptysis, wheezing, COPD, dyspnea or shortness of breath CARDIOVASCULAR: Negative for chest pain, leg swelling, hypertension, CHF or palpitations NEURO: No history of headaches, syncope, paralysis, seizures or tremors EXAM: BP 120/80 (BP Site: Left Arm, BP Position: Sitting, BP Cuff Size: Regular Adult) Pulse 80 Resp 16 Wt 79.3 kg (174 lb 12.8 oz) LMP 01/06/2007 SpO2 96% BMI 30.72 kg/m General Appearance: Well appearing, alert, in no acute distress, well-hydrated, well nourished.. Neck: Supple, no adenopathy; thyroid symmetric, normal size, no bruits. Lungs: Lungs clear to auscultation. No wheezing, rhonchi, rales.. Heart: RRR without murmur, gallop, or rubs. No ectopy. Extremities: No deformities, edema, skin discoloration, clubbing or cyanosis. Good capillary refill. . Peripheral Pulses: Normal. Health Maintenance List PNEUMOCOCCAL(1 - PCV) Never done SHINGRIX VACCINE(1 of 2) Never done COLORECTAL CANCER SCREENING due on 08/08/2018 PAP TESTING due on 09/26/2019 HPV TESTING due on 09/26/2019 MAMMOGRAM due on 10/17/2019 COVID-19 VACCINE(3 - Booster for Pfizer series) due on 10/31/2020 INFLUENZA(1) due on 01/06/2022 ANNUAL PCP TEAM CHRONIC DISEASE VISIT due on 04/15/2022 DEPRESSION ASSESSMENT Never done DIABETES SCREEN due on 05/17/2025 LIPID SCREEN due on 05/17/2027 DTAP,TDAP,TD(2 - Td or Tdap) due on 08/09/2027 HEPATITIS C SCREENING Completed HIV SCREENING Discontinued Data reviewed Component Latest Ref Rng & Units 05/17/2022 WBC 3.70 - 11.00 k/uL 8.32 RBC 3.90 - 5.20 m/uL 4.97 Hemoglobin 11.5 - 15.5 g/dL 15.7 (H) Hematocrit 36.0 - 46.0 % 49.2 (H) MCV 80.0 - 100.0 fL 99.0 MCH 26.0 - 34.0 pg 31.6 MCHC 30.5 - 36.0 g/dL 31.9 RDW-CV 11.5 - 15.0 % 12.9 Platelet Count 150 - 400 k/uL 228 MPV 9.0 - 12.7 fL 11.1 Neut% % 72.3 Abs Neut (ANC) 1.45 - 7.50 k/uL 6.02 Lymph% % 20.1 Abs Lymph 1.00 - 4.00 k/uL 1.67 Costilla% % 6.3 Abs Costilla <0.87 k/uL 0.52 Eosin% % 0.7 Abs Eosin <0.46 k/uL 0.06 Baso% % 0.5 Abs Baso <0.11 k/uL 0.04 Immature Gran % % 0.1 IMMATURE GRANS (ABS) <0.10 k/uL <0.03 DTYPE Auto Protein, Total 6.3 - 8.0 g/dL 7.3 Albumin 3.9 - 4.9 g/dL 4.4 Calcium 8.5 - 10.2 mg/dL 9.3 Bilirubin, Total 0.2 - 1.3 mg/dL 0.3 Alkaline Phosphatase 34 - 123 U/L 104 AST 13 - 35 U/L 18 ALT 7 - 38 U/L 18 Glucose 74 - 99 mg/dL 88 BUN 7 - 21 mg/dL 12 Creatinine 0.58 - 0.96 mg/dL 0.76 Sodium 136 - 144 mmol/L 140 Potassium 3.7 - 5.1 mmol/L 4.4 Chloride 97 - 105 mmol/L 106 (H) CO2 22 - 30 mmol/L 25 Anion Gap 9 - 18 mmol/L 9 eGFR >=60 mL/min/1.73m 89 Total Cholesterol, Nonfasting <200 mg/dL 197 Triglycerides, Nonfasting <150 mg/dL 87 HDL Cholesterol, Nonfasting >39 mg/dL 56 LDL Cholesterol, Nonfasting <100 mg/dL 124 (H) Non HDL Cholesterol, Nonfasting <130 mg/dL 141 (H) VLDL Cholesterol, Nonfasting <30 mg/dL 17 Total Chol/HDL Ratio, Nonfasting <5.10 mg/dL 3.52 LDL/HDL Ratio, Nonfasting <2.54 mg/dL 2.21 Iron 41 - 186 ug/dL 102 TIBC 232 - 386 ug/dL 264 Transferrin Saturation 15.0 - 57.0 % 38.6 Hemoglobin A1C 4.3 - 5.6 % 5.5 Estimated Average Glucose mg/dL 111 TSH 0.270 - 4.200 mIU/L 0.967 ASSESSMENT/PLAN: 1. Acquired hypothyroidism - ICD9: 244.9, ICD10: E03.9 (primary diagnosis) - Instructed patient on importance of taking on an empty stomach either first thing in the morning or at bedtime. - continue current dose of Synthroid - LEVOTHYROXINE 200 MCG TABLET 2. Smoker - ICD9: 305.1, ICD10: F17.200 - Cessation encouraged. - Physiologic and physical aspects of tobacco addiction as well as strategies for quitting were discussed. - Counseling was given focusing on the harmful effects of this addiction especially given the patient's medical condition(s) which will be worsened because of the chemicals in tobacco. - [facility] low dose CT scan ordered. 3. Other iron deficiency anemia - ICD9: 280.8, ICD10: D50.8 4. Encounter for screening mammogram for breast cancer - ICD9: V76.12, ICD10: Z12.31 - [facility]ENT[facility] SCREENING 5. Screening for lung cancer - ICD9: V76.0, ICD10: Z12.2 CT ordered at [facility]. Follow up in 1 year. Sooner prn. Magda East PA-C documented in this encounter [facility] 05-26-2022 Miscellaneous Notes The following approved medication requests have been transmitted electronically. Requested Prescriptions Signed Prescriptions Disp Refills levothyroxine (SYNTHROID) 200 mcg tablet 30 tablet 0 Sig: TAKE 1 TABLET BY MOUTH ONCE DAILY. TAKE ON AN EMPTY STOMACH, FOR THYROID. Authorizing Provider: MAGDA EAST PA-C Patient has been identified by name and date of : Yes Patient phones for refill(s): Requested Prescriptions Pending Prescriptions Disp Refills levothyroxine (SYNTHROID) 200 mcg tablet [Pharmacy Med Name: LEVOTHYROXINE 200 MCG TABLET] 30 tablet 0 Sig: TAKE 1 TABLET BY MOUTH ONCE DAILY. TAKE ON AN EMPTY STOMACH, FOR THYROID. Date of last office visit in primary care: 10/02/20 Appointment scheduled 06/03/2022 Please advise. Thank you. Torrie Dior LPN documented in this encounter [facility] 05-04-2022 Miscellaneous Notes Patient returns call and provider message reviewed. Patient verbalizes understanding. Appointment scheduled. Ania Mcdonald RN Left a message for pt to call the office. Pt needs to have fasting blood work done and apt in the office. Alma Glynn LPN Labs ordered. Please enter blood work then we can call pt with information listed below. Alma Glynn LPN Left message for patient to contact office. Penny De León MA Patient has been identified by name and date of : Yes Requested Prescriptions Pending Prescriptions Disp Refills levothyroxine (SYNTHROID) 200 mcg tablet [Pharmacy Med Name: LEVOTHYROXINE 200 MCG TABLET] 30 tablet 11 Sig: TAKE 1 TABLET BY MOUTH ONCE DAILY. TAKE ON AN EMPTY STOMACH, FOR THYROID. RX INSTRUCTIONS: Patient aware RX will be sent to pharmacy. No need to notify patient. Penny De León MA Elliot: 04/2021 No appointment - contact patient to set up appt. Last refill: 04/2021 documented in this encounter [facility] 01-04-2022 Miscellaneous Notes Pt advised of Magda's message and instructions. She states she is going to come into [facility] tomorrow morning as she will not make it home in time tonight to go there. Chuy Garza LPN She will need to be seen. If symptoms worsen, she will need to go to ER. Advise to take oral antihistamine such as benadryl and/or claritin/zyrtec. Magda East PA-C Due to symptoms patient encouraged to come to office today (within 4 hours for evaluation), or ER if provider agrees. Patient states she works 2 jobs and cannot be seen today. Patient asking if provider would order something by phone without evaluation and this nurse explained she would need seen. Patient states she will come to [facility] tomorrow. Please call patient if should be seen at ER, otherwise she will go to [facility] tomorrow. Thank you. Reason for Disposition [1] Red or very tender (to touch) area AND [2] started over 24 hours after the bite Answer Assessment - Initial Assessment Questions Patient calling to state she adamantly believes she got bit by a spider while pulling weeds last week on 12/30, but never saw the spider and has no spider bite festus on body. Within 24 hours she states her she experienced bumps (like hives) on left side of face but are not present now. Currently the left side of her face is red, itchy and warm to touch, with swelling around left eye. No vision changes. States she feels her neck glands may feel swollen also. Reports she feels like she has been drooling since 01/01. Speech is clear on phone. Reports her lips also feel different but denies tingling or numbness. Reports left nostril looks reddened as well. Denies trouble breathing, denies throat tightness. No hoarse voice. Using topical benadryl which she states is helping . 1. TYPE of INSECT: believes it was a spider bite 2. ONSET: 12/30 3. LOCATION: patient is not sure 4. REDNESS: whole left side of face 5. PAIN: Denies any pain 6. ITCHING: yes 7. SWELLING: surrounding left eye 8. OTHER SYMPTOMS: as above 9. : no Protocols used: Insect [id number] documented in this encounter [facility] documented as of this encounter (statuses as of 09/20/2021) [facility] History of Past illness Narrative* Problem Noted Date Resolved Date VENTRAL HERNIA, RECURRENT W/O GANGRENE/OBSTRUCTI ON 05/25/2007 07/01/2019 documented as of this encounter (statuses as of 01/04/2022) [facility] History of Past illness Narrative* Problem Noted Date Resolved Date VENTRAL HERNIA, RECURRENT W/O GANGRENE/OBSTRUCTI ON 05/25/2007 07/01/2019 documented as of this encounter (statuses as of 05/10/2022) [facility] of Past illness Narrative* Problem Noted Date Resolved Date VENTRAL HERNIA, RECURRENT W/O GANGRENE/OBSTRUCTI ON 05/25/2007 07/01/2019 documented as of this encounter (statuses as of 05/26/2022) [facility] History of Past illness Narrative* Problem Noted Date Resolved Date VENTRAL HERNIA, RECURRENT W/O GANGRENE/OBSTRUCTI ON 05/25/2007 07/01/2019 documented as of this encounter (statuses as of 06/03/2022) [facility] of Past illness Narrative* Problem Noted Date Resolved Date VENTRAL HERNIA, RECURRENT W/O GANGRENE/OBSTRUCTI ON 05/25/2007 07/01/2019 documented as of this encounter (statuses as of 06/13/2022) [facility] of [facility] illness Narrative* Problem Noted Date Resolved Date VENTRAL HERNIA, RECURRENT W/O GANGRENE/OBSTRUCTI ON 05/25/2007 07/01/2019 documented as of this encounter (statuses as of 06/13/2022) [facility] of Past illness Narrative* Problem Noted Date Resolved Date VENTRAL HERNIA, RECURRENT W/O GANGRENE/OBSTRUCTI ON 05/25/2007 07/01/2019 documented as of this encounter (statuses as of 06/15/2022) [facility] of Past illness Narrative* Problem Noted Date Resolved Date VENTRAL HERNIA, RECURRENT W/O GANGRENE/OBSTRUCTI ON 05/25/2007 07/01/2019 documented as of this encounter (statuses as of 08/15/2022) [facility] of Past illness Narrative* Problem Noted Date Resolved Date VENTRAL HERNIA, RECURRENT W/O GANGRENE/OBSTRUCTI ON 05/25/2007 07/01/2019 documented as of this encounter (statuses as of 08/15/2022) [facility] of Past illness Narrative* Problem Noted Date Resolved Date VENTRAL HERNIA, RECURRENT W/O GANGRENE/OBSTRUCTI ON 05/25/2007 07/01/2019 documented as of this encounter (statuses as of 08/16/2022) [facility] of [facility] Narrative* Problem Noted Date Resolved Date VENTRAL HERNIA, RECURRENT W/O GANGRENE/OBSTRUCTI ON 05/25/2007 07/01/2019 documented as of this encounter (statuses as of 08/17/2022) [facility] Narrative* Problem Noted Date Resolved Date VENTRAL HERNIA, RECURRENT W/O GANGRENE/OBSTRUCTI ON 05/25/2007 07/01/2019 documented as of this encounter (statuses as of 09/09/2022) [facility] of Past illness Narrative* Problem Noted Date Diagnosed Date Resolved Date VENTRAL HERNIA, RECURRENT W/ O GANGRENE/OBSTRUCTION 05/25/2007 07/01/2019 documented as of this encounter (statuses as of 06/15/2023) [facility] of Past illness Narrative* Problem Noted Date Diagnosed Date Resolved Date VENTRAL HERNIA, RECURRENT W/ O GANGRENE/OBSTRUCTION 05/25/2007 07/01/2019 documented as of this encounter (statuses as of 06/19/2023) [facility] of [facility] Narrative* Problem Noted Date Diagnosed Date Resolved Date VENTRAL HERNIA, RECURRENT W/ O GANGRENE/OBSTRUCTION 05/25/2007 07/01/2019 documented as of this encounter (statuses as of 06/21/2023) [facility] note* Diagnosis Encounter for screening mammogram for breast cancer [facility] Diagnosis Other iron deficiency anemia- Primary Acquired hypothyroidism Unspecified hypothyroidism Encounter for screening for diabetes mellitus Screening for diabetes mellitus Encounter for lipid screening for cardiovascular disease Screening for lipoid disorders [facility] Diagnosis Acquired hypothyroidism Unspecified hypothyroidism [facility] Diagnosis Acquired hypothyroidism- Primary Unspecified hypothyroidism Smoker Tobacco use disorder Other iron deficiency anemia Encounter for screening mammogram for breast cancer Screening for lung cancer [facility] Diagnosis Smoker Tobacco use disorder [facility] Diagnosis Fall, initial encounter- Primary Left hand pain Pain in limb Left wrist pain Pain in joint, forearm [facility] Diagnosis Fall, initial encounter Left hand pain Pain in limb [facility] Diagnosis Fall, initial encounter Left wrist pain Pain in joint, forearm [facility] Diagnosis TFCC (triangular fibrocartilage complex) injury, left, initial encounter- Primary Fall, initial encounter Left hand pain Pain in limb Left wrist pain Pain in joint, forearm [facility] Diagnosis Injury of triangular fibrocartilage complex (TFCC) of left wrist, subsequent encounter- Primary [facility] Diagnosis Acquired hypothyroidism Unspecified hypothyroidism documented in this [facility] Diagnosis Well adult exam- Primary Routine general medical examination at a health care facility Acquired hypothyroidism Unspecified hypothyroidism Smoker Tobacco use disorder Other iron deficiency anemia Screening for colon cancer Special screening for malignant neoplasms, colon Encounter for screening for diabetes mellitus Screening for diabetes mellitus Encounter for lipid screening for cardiovascular disease Screening for lipoid disorders HX: breast cancer Personal history of malignant neoplasm of breast Encounter for screening mammogram for breast cancer documented in this encounter [facility] for referral (narrative)* Diagnostic Procedure Only (Routine) - Pending Review Specialty Diagnoses / Procedures Referred By Giacomoac t Referred To Contact BR IMAGING Diagnoses Encounter for screening mammogram for breast cancer Procedures QUENTIN SCREENING SCREENING MAMMOGRAPHY BI 2-VIEW BREAST INC CAD Shan Yoon MD [address] [place] [address] [facility] [id number] [place] [address] Referral ID Status Reason Start Date Expiration Date Visits Requested Visits Authorized [id number] Pending Review Auto-Generat ed Referral 09/15/2021 10/15/2022 1 1 [facility] for referral (narrative)* Diagnostic Procedure Only (Routine) - Authorized Specialty Diagnoses / Procedures Referred By Kristopher arnett Referred To Contact BR IMAGING Diagnoses Encounter for screening mammogram for breast cancer Procedures QUENTIN SCREENING SCREENING MAMMOGRAPHY BI 2-VIEW BREAST INC CAD Magda East PA-C [address] [place] [address] [facility] [id number] [place] [address] Referral ID Status Reason Start Date Expiration Date Visits Requested Visits Authorized [id number] Authorized Auto-Generat ed Referral 06/03/2022 07/03/2023 1 1 [facility] for referral (narrative)* Diagnostic Procedure Only (Urgent) - Closed Specialty Diagnoses / Procedures Referred By Kristopher t Referred To Contact XR IMAGING Diagnoses Fall, initial encounter Left hand pain Procedures XR HAND GENERAL 3V PA/LAT/OBL LEFT RADEX HAND MINIMUM 3 VIEWS Chelo Wilkerson APRN.BALLISTIC EXPERT [address] [place] [address] Xr Imaging Referral ID Status Reason Start Date Expiration Date V isits Requested Visits Authorized [id number] Closed Auto-Generate d Referral 08/15/2022 09/14/2023 1 1 [facility] for referral (narrative)* Diagnostic Procedure Only (Urgent) - Closed Specialty Diagnoses / Procedures Referred By Contac t Referred To Contact XR IMAGING Diagnoses Fall, initial encounter Left wrist pain Procedures XR WRIST INJURY 4V PA/LAT/OBL/SCAPH LEFT RADEX WRIST COMPLETE MINIMUM 3 VIEWS Chelo Wilkerson APRN.BALLISTIC EXPERT [address] [place] [id number] Xr Imaging Referral ID Status Reason Start Date Expiration Date V isits Requested Visits Authorized [id number] Closed Auto-Generate d Referral 08/15/2022 09/14/2023 1 1 [facility] for visit Narrative* Diagnostic Procedure Only (Urgent) - Closed Specialty Diagnoses / Procedures Referred By Contac t Referred To Contact XR IMAGING Diagnoses Fall, initial encounter Left hand pain Procedures XR HAND GENERAL 3V PA/LAT/OBL LEFT RADEX HAND MINIMUM 3 VIEWS Chelo Wilkerson APRN.BALLISTIC EXPERT [address] [place] [id number] Xr Imaging Referral ID Status Reason Start Date Expiration Date V isits Requested Visits Authorized [id number] Closed Auto-Generate d Referral 08/15/2022 09/14/2023 1 1 [facility] for visit Narrative* Diagnostic Procedure Only (Urgent) - Closed Specialty Diagnoses / Procedures Referred By Contac t Referred To Contact XR IMAGING Diagnoses Fall, initial encounter Left wrist pain Procedures XR WRIST INJURY 4V PA/LAT/OBL/SCAPH LEFT RADEX WRIST COMPLETE MINIMUM 3 VIEWS Chelo Wilkerson APRN.BALLISTIC EXPERT [address] [place] [id number] Xr Imaging Referral ID Status Reason Start Date Expiration Date V isits Requested Visits Authorized [id number] Closed Auto-Generate d Referral 08/15/2022 09/14/2023 1 1 [facility] Summary Purpose Family History No Family History Records FoundNo Family History Records FoundNo Family History Records Found Advance Directives No Advanced Directives Records FoundNo Advanced Directives Records FoundNo Advanced Directives Records Found Reason for Referral Specialty Diagnoses / Procedures Referred By Contac t Referred To Contact Orthopedics Diagnoses Fall, initial encounter Left hand pain Left wrist pain Procedures CONSULT TO ORTHOPAEDICS OFFICE/OUTPATIENT [facility] 60-74 MINUTES Chelo Wilkerson, SYSTEMS QA ANALYST.BALLISTIC EXPERT [address] [place] [address] Referral ID Status Reason Start Date Expiration Date Visits Requested Visits Authorized [id number] Authorized PCP Requested Referral 08/15/2022 08/15/2023 1 1 Specialty Diagnoses / Procedures Referred By Contac t Referred To Contact XR IMAGING Diagnoses Fall, initial encounter Left hand pain Procedures XR HAND GENERAL 3V PA/LAT/OBL LEFT RADEX HAND MINIMUM 3 VIEWS Chelo Wilkerson, SYSTEMS QA ANALYST.BALLISTIC EXPERT [address] [place] [address] Xr Imaging Referral ID Status Reason Start Date Expiration Date V isits Requested Visits Authorized [id number] Closed Auto-Generate d Referral 08/15/2022 09/14/2023 1 1 Specialty Diagnoses / Procedures Referred By Contac t Referred To Contact XR IMAGING Diagnoses Fall, initial encounter Left wrist pain Procedures XR WRIST INJURY 4V PA/LAT/OBL/SCAPH LEFT RADEX WRIST COMPLETE MINIMUM 3 VIEWS Chelo Wilkerson, SYSTEMS QA ANALYST.BALLISTIC EXPERT [address] [place] [address] Xr Imaging Referral ID Status Reason Start Date Expiration Date V isits Requested Visits Authorized [id number] Closed Auto-Generate d Referral 08/15/2022 09/14/2023 1 1 Specialty Diagnoses / Procedures Referred By Contac t Referred To Contact Diagnoses Other iron deficiency anemia HX: breast cancer Procedures CONSULT TO HEMATOLOGY/ONCOLOGY OFFICE/OUTPATIENT [facility] MDM 60 MINUTES Magda East PA-C [address] [place] [address] Referral ID Status Reason Start Date Expiration Date Visits Requested Visits Authorized [id number] Authorized PCP Requested Referral 06/19/2023 06/18/2024 1 1 Specialty Diagnoses / Procedures Referred By Kristopher arnett Referred To Contact BR IMAGING Diagnoses Encounter for screening mammogram for breast cancer Procedures QUENTIN SCREENING SCREENING MAMMOGRAPHY BI 2-VIEW BREAST INC Magda Vallejo PA-C [address] [place] [address] [facility] [address] [place] [address] Referral ID Status Reason Start Date Expiration Date Visits Requested Visits Authorized [id number] Pending Review Auto-Generat ed Referral 06/19/2023 07/18/2024 1 1 Additional Source Comments INFORMATION SOURCE (unrecogn ized section and content) DATE CREATED AUTHOR AUTHOR'S ORGANIZ ATION 08/20/2022 [facility] DATE CREATED AUTHOR AUTHOR'S ORGANIZ ATION 06/23/2023 [facility] Source Comments (unrecognize d section and content) In the event this informatio n is protected by the Federal Confidentiality of Alcohol and Drug Abuse Patient Records regulations: The Federal rules restrict any use of the information to criminally investigate or prosecute any alcohol or drug abuse patient.[facility] the event this information is protected by the Federal Confidentiality of Alcohol and Drug Abuse Patient Records regulations: The Federal rules restrict any use of the information to criminally investigate or prosecute any alcohol or drug abuse patient.[facility] the event this information is protected by the Federal Confidentiality of Alcohol and Drug Abuse Patient Records regulations: The Federal rules restrict any use of the information to criminally investigate or prosecute any alcohol or drug abuse patient.[facility] the event this information is protected by the Federal Confidentiality of Alcohol and Drug Abuse Patient Records regulations: The Federal rules restrict any use of the information to criminally investigate or prosecute any alcohol or drug abuse patient.[facility] the event this information is protected by the Federal Confidentiality of Alcohol and Drug Abuse Patient Records regulations: The Federal rules restrict any use of the information to criminally investigate or prosecute any alcohol or drug abuse patient.[facility] the event this information is protected by the Federal Confidentiality of Alcohol and Drug Abuse Patient Records regulations: The Federal rules restrict any use of the information to criminally investigate or prosecute any alcohol or drug abuse patient.[facility] the event this information is protected by the Federal Confidentiality of Alcohol and Drug Abuse Patient Records regulations: The Federal rules restrict any use of the information to criminally investigate or prosecute any alcohol or drug abuse patient.[facility] the event this information is protected by the Federal Confidentiality of Alcohol and Drug Abuse Patient Records regulations: The Federal rules restrict any use of the information to criminally investigate or prosecute any alcohol or drug abuse patient.[facility] the event this information is protected by the Federal Confidentiality of Alcohol and Drug Abuse Patient Records regulations: The Federal rules restrict any use of the information to criminally investigate or prosecute any alcohol or drug abuse patient.[facility] the event this information is protected by the Federal Confidentiality of Alcohol and Drug Abuse Patient Records regulations: The Federal rules restrict any use of the information to criminally investigate or prosecute any alcohol or drug abuse patient.[facility] the event this information is protected by the Federal Confidentiality of Alcohol and Drug Abuse Patient Records regulations: The Federal rules restrict any use of the information to criminally investigate or prosecute any alcohol or drug abuse patient.[facility] the event this information is protected by the Federal Confidentiality of Alcohol and Drug Abuse Patient Records regulations: The Federal rules restrict any use of the information to criminally investigate or prosecute any alcohol or drug abuse patient.[facility] the event this information is protected by the Federal Confidentiality of Alcohol and Drug Abuse Patient Records regulations: The Federal rules restrict any use of the information to criminally investigate or prosecute any alcohol or drug abuse patient.[facility] the event this information is protected by the Federal Confidentiality of Alcohol and Drug Abuse Patient Records regulations: The Federal rules restrict any use of the information to criminally investigate or prosecute any alcohol or drug abuse patient.[facility] HospitalIn the event this information is protected by the Federal Confidentiality of Alcohol and Drug Abuse Patient Records regulations: The Federal rules restrict any use of the information to criminally investigate or prosecute any alcohol or drug abuse patient.[facility] HospitalIn the event this information is protected by the Federal Confidentiality of Alcohol and Drug Abuse Patient Records regulations: The Federal rules restrict any use of the information to criminally investigate or prosecute any alcohol or drug abuse patient.[facility] HospitalIn the event this information is protected by the Federal Confidentiality of Alcohol and Drug Abuse Patient Records regulations: The Federal rules restrict any use of the information to criminally investigate or prosecute any alcohol or drug abuse patient.[facility] Care Teams (unrecognized sec tion and content) [employer] Superintendent Relationship Specialty Start Date End Date Shan Yoon MD [address] [place] [address] PCP - General Family Practice 03/08/16 [employer] Superintendent Relationship Specialty Start Date End Date Shan Yoon MD [address] [place] [address] PCP - General Family Medicine 03/08/16 [employer] Superintendent Relationship Specialty Start Date End Date Shan Yono MD [address] [place] [address] PCP - General Family Medicine 03/08/16 [employer] Superintendent Relationship Specialty Start Date End Date Shan Yoon MD [address] [place] [address] PCP - General Family Medicine 03/08/16 [employer] Superintendent Relationship Specialty Start Date End Date Shan Yoon MD [facility] [place] [address] PCP - General Family Medicine 03/08/16 [employer] Superintendent Relationship Specialty Start Date End Date Shan Yoon MD [address] [place] [address] PCP - General Family Medicine 03/08/16 [employer] Superintendent Relationship Specialty Start Date End Date Shan Yoon MD [address] [place] [address] PCP - General Family Medicine 03/08/16 [employer] Superintendent Relationship Specialty Start Date End Date Shan Yoon MD [facility] [place] [address] PCP - General Family Medicine 03/08/16 [employer] Superintendent Relationship Specialty Start Date End Date Shan Yoon MD [address] [place] [address] PCP - General Family Medicine 03/08/16 [employer] Superintendent Relationship Specialty Start Date End Date Shan Yoon MD [address] [place], [place] [id number] PCP - General Family Medicine 03/08/16 [employer] Superintendent Relationship Specialty Start Date End Date Shan Yoon MD [address] [place], [place] [address] PCP - General Family Medicine 03/08/16 [employer] Superintendent Relationship Specialty Start Date End Date Shan Yoon MD [address] [place], [place] [id number] PCP - General Family Medicine 03/08/16 [employer] Superintendent Relationship Specialty Start Date End Date Shan Yoon MD [address] [place], [place] [address] PCP - General Family Medicine 03/08/16 Reason for Visit (unrecogniz ed section and content) Reason Comments Refill Request Reason Comments Follow Up Medication Reason Comments Results Reason Comments Fall Was roller skating l ast night and fell. Left hand bruised, swollen and painful Reason Comments New Pain Swelling Specialty Diagnoses / Procedures Referred By Kristopher arnett Referred To Contact Orthopedics Diagnoses Fall, initial encounter Left hand pain Left wrist pain Procedures CONSULT TO ORTHOPAEDICS OFFICE/OUTPATIENT NEW [facility] MDM 60-74 MINUTES Chelo Wilkerson APRN.BALLISTIC EXPERT [address] [place] [address] Referral ID Status Reason Start Date Expiration Date V isits Requested Visits Authorized [id number] Closed PCP Requested Referral 08/15/2022 08/15/2023 1 1 Reason Comments Follow Up Reason Onset Date Comments Refill Request 06/14/2023 Reason Comments Yearly Exam Reason Comments New Patient FOR RECORDS PERTAINING TO PATIENTS WHO ARE OR HAVE BEEN ENROLLED IN A CHEMICAL DEPENDENCY/SUBSTANCEABUSE PROGRAM, SOME INFORMATION MAY BE OMITTED. This clinical summary was aggregated from multiple sources. Caution should be exercised in using it in the provision of clinical care. This summary normalizes information from multiple sources, and as a consequence, information in this document may materially change the coding, format and clinical context of patient data. In addition, data may be omitted in some cases. CLINICAL DECISIONS SHOULD BE BASED ON THE PRIMARY CLINICAL RECORDS. [employer] [facility]. provides no warranty or guarantee of the accuracy or completeness of information in this document.
== END | disposition home or self-care (01) ==
LOC: CT 07:52
PROVIDERS: PCP Family Medicine; Referring Provider Physician Assistant; Visit Provider Physician Assistant
DX: Z12.2 Encounter for screening for malignant neoplasm of respiratory organs (principal); Z87.891 Personal history of nicotine dependence
CPT/HCPCS: 71271